=== PATIENT | female | born 1975 | race Caucasian/White ===

== ENCOUNTER → 2018-06-22 | Outpatient (CLI) | payer BC, OTHER ==
[~2018-06-22] MED LIST: FURO40TA4 PO; LVT.025T PO; METH10TA3 PO; VENL150C PO
--- NOTE | 2018-06-22 16:07 | Diagnostic Imaging Report ---
INDICATION: FEVER. COMPARISON: None. FINDINGS: Frontal and lateral views of the chest demonstrate normal heart size and pulmonary vascularity. The lungs are clear. There are no signs of infiltrate, pleural effusions or pneumothoraces. The visualized osseous structures show no acute abnormalities. IMPRESSION: 1. No acute process. No signs of infiltrates, effusions or pneumothoraces. Dictated by: Dictated on workstation # [id number]
== END ==
LOC: RAD 15:15
PROVIDERS: ATTEND Internal Medicine
DX: R50.9 Fever, unspecified (principal)
CPT/HCPCS: 71046